=== PATIENT | female | born 1950 | race Caucasian/White ===

== ENCOUNTER 2024-02-27 07:06 | Day surgery (SDC) | payer MEDICARE, OTHER ==
[~2024-02-27] VITALS: Ht 157.5 cm; Wt 80.4 kg
[2024-02-27] MEDS ORDERED: ROSUVASTATIN CA10 MG (08:05)
[2024-02-27] MEDS ORDERED: MONT10T (08:05)
[2024-02-27] MEDS ORDERED: TOPI25 (08:05)
[2024-02-27] MEDS ORDERED: MULTIPLE VITAM1 EACH (08:11)
[2024-02-27] MEDS ORDERED: COQ-10100 MG (08:11)
[2024-02-27] MEDS ORDERED: Preservision S1 EACH (08:12)
[2024-02-27] MEDS ORDERED: PRESERVISION (08:30)
[2024-02-27] MEDS ORDERED: Salmon Oil (08:30)
[2024-02-27] MEDS ORDERED: VITAMIN D310 MC1 (08:31)
[2024-02-27] MEDS ORDERED: CLARITIN5 MG (08:31)
[2024-02-27] MEDS ORDERED: stool softener (08:32)
[2024-02-27] MEDS ORDERED: propofoL 50 ML IV ONE (08:33)
[2024-02-27] MEDS ORDERED: Lactated Ringer's 1,000 ML IV ONE ×2 (08:33→09:58)
[2024-02-27] MEDS ORDERED: Ondansetron HCl 2 MG / ML 2ML Vial ONE (09:02)
== END 2024-02-27 09:53 | disposition home or self-care (01) ==
LOC: ORSCSDS 07:06
PROVIDERS: Specialist
PROC: 0DBN8ZX Excision of Sigmoid Colon, Via Natural or Artificial Opening Endoscopic, Diagnostic (ICD-10-PCS; principal; 2024-02-27 08:30)
PROC: 0DBM8ZX Excision of Descending Colon, Via Natural or Artificial Opening Endoscopic, Diagnostic (ICD-10-PCS; principal; 2024-02-27 08:30)
PROC: 0DBL8ZX Excision of Transverse Colon, Via Natural or Artificial Opening Endoscopic, Diagnostic (ICD-10-PCS; principal; 2024-02-27 08:30)
DX: R19.4 Change in bowel habit (principal); Z86.0100 Personal history of colon polyps, unspecified; D12.3 Benign neoplasm of transverse colon; D12.4 Benign neoplasm of descending colon; D12.5 Benign neoplasm of sigmoid colon; K64.8 Other hemorrhoids; K64.4 Residual hemorrhoidal skin tags; I10 Essential (primary) hypertension; Z79.899 Other long term (current) drug therapy
CPT/HCPCS: 88305; J2405; J2704; J7120